=== PATIENT | female | born 1940 | race Caucasian/White ===

== ENCOUNTER 2016-10-15 02:15 | Emergency (ER) | payer MEDICARE, OTHER ==
[2016-10-15] MEDS ORDERED: OXYMETAZOLINE NASAL SPRAY NAS STA (02:20)
[2016-10-15] MEDS ORDERED: OXYMETAZOLINE NASAL SPRAY NAS ONE (02:35)
--- NOTE | 2016-10-15 03:24 | ED Physician Documentation ---
PD HPI HEENT - Stated complaint Stated Complaint: NOSE BLEED - Chief complaint Chief Complaint: Heent - History obtained from History obtained from: Patient, Friend - History of Present Illness Timing - onset: Today Timing - duration: Minutes Timing - details: Abrupt onset Location: Nose Worsens: Position Associated symptoms: Rhinorrhea. No: Fever, Congestion Similar symptoms before: Has not had sx before Recently seen: Not recently seen - Additional information Additional information: Patient is a 75 year old female with no significant past medical history who is presenting to the emergency department for a nosebleed. patient states that it started at rest and was persistent so she called ems. Upon initial evaluation in the emergency department there was very minimal bleeding. Review of Systems Constitutional: denies: Fever, Chills Eyes: denies: Irritation Ears: denies: Ear pain Nose: reports: Epistaxis Throat: denies: Sore throat Respiratory: denies: Cough GI: denies: Nausea, Vomiting Neurologic: denies: Generalized weakness, Focal weakness Endocrine: denies: Easy bruising / bleeding Immunocompromised: denies: Immunocompromised PD PAST MEDICAL HISTORY - Past Medical History Past Medical History: Yes Cardiovascular: High cholesterol, ID Endocrine/Autoimmune: HyPOthyroidism Psych: Depression Musculoskeletal: Osteoporosis - Past Surgical History Past Surgical History: No - Present Medications Home Medications: Ambulatory Orders Medication Instructions Recorded Confirmed Aspirin [Adult Low Dose Aspirin EC] 81 mg PO DAILY 10/15/16 10/15/16 Levothyroxine [Synthroid] 75 mcg PO DAILY 10/15/16 10/15/16 Sertraline [Zoloft] 50 mg PO DAILY 10/15/16 10/15/16 Simvastatin 40 mg PO DAILY 10/15/16 10/15/16 - Allergies Allergies/Adverse Reactions: Allergies Allergy/AdvReac Type Severity Reaction Status Date / Time amoxicillin Allergy Nausea Verified 10/15/16 02:27 azithromycin [From Zithromax] Allergy Nausea Verified 10/15/16 02:27 latex Allergy Rash Verified 10/15/16 02:26 - Social History Does the pt smoke?: No Smoking Status: Former smoker Does the pt drink ETOH?: Yes ETOH Use: Wine Does the pt have substance abuse?: No - Immunizations Immunizations are current?: No Immunizations: TDAP >10years/unknown, Other immun current PD ED PE NORMAL - Vitals Vital signs reviewed: Yes - General General: Alert and oriented X 3, No acute distress - HEENT HEENT: Atraumatic - Neck Neck: Supple, no meningeal sign - Cardiac Cardiac: RRR, No murmur - Respiratory Respiratory: No respiratory distress - Abdomen Abdomen: Soft - Derm Derm: Normal color, Warm and dry - Neuro Neuro: No motor deficit, No sensory deficit - Psych Psych: Normal mood, Normal affect PD ED PE EXPANDED - HEENT HEENT: Atraumatic, Right nares epsitaxis (minimal anterior epistaxis on the right) Results - Vitals Vitals: Vital Signs - 24 hr 10/15/16 10/15/16 02:19 03:34 Temperature 36.8 C 36.9 C Heart Rate 94 68 Respiratory 16 16 Rate Blood Pressure 166/88 H 158/86 H O2 Saturation 98 97 Oxygen O2 Source Room air PD MEDICAL DECISION MAKING - ED course Complexity details: reviewed old records, reviewed results, re-evaluated patient , considered differential, d/w patient ED course: Patient was seen and examined at bedside. patient's epistaxis had almost stopped. patient blew her nose and afrin was applied as well has topical antibiotic. Patient's bleeding source was anterior. Patient's bleeding was well controlled. Patient required no further work up and was stable for discharge with outpatient follow up. Departure - Departure Disposition: 01 Home, Self Care Clinical Impression: Epistaxis Condition: Good Instructions: ED Nosebleed Follow-Up: primary,care provider [Other] - As Needed Comments: try to keep the inside of your nose moist and only use the afrin sparingly. If the problem becomes more frequent you can try a humidifier and ollow up with your pmd.
[2016-10-15 03:35] VITALS: BP 158/86
== END 2016-10-15 03:36 | disposition home or self-care (01) ==
LOC: ED 02:15
DX: R04.0 Epistaxis (principal); I25.2 Old myocardial infarction; Z87.891 Personal history of nicotine dependence; Z79.82 Long term (current) use of aspirin
CPT/HCPCS: 99282; 99283; A9270